=== PATIENT | female | born 1940 ===

== ENCOUNTER → 2023-04-14 11:49 | Outpatient (ROUT) | payer MEDICARE, OTHER, SELFPAY ==
[2023-04-14 12:10] LABS: INR 2.7 (0.9-1.3); Prothrombin Time 31.7 SECONDS (9.4-12.5)
== END ==
PROVIDERS: Visit Provider Family Medicine
DX: I48.0 Paroxysmal atrial fibrillation (principal)
CPT/HCPCS: 85610

== ENCOUNTER → 2023-07-01 09:07 | Outpatient (ROUT) | payer MEDICARE, OTHER, SELFPAY ==
[2023-07-01 09:22] LABS: INR 3.7 (0.9-1.3); Prothrombin Time 42.7 SECONDS (9.4-12.5)
== END ==
PROVIDERS: Visit Provider Family Medicine
DX: I48.0 Paroxysmal atrial fibrillation (principal)
CPT/HCPCS: 85610

== ENCOUNTER → 2023-07-16 12:13 | Outpatient (ROUT) | payer MEDICARE, OTHER, SELFPAY ==
[2023-07-16 12:45] LABS: INR 1.5 (0.9-1.3); Prothrombin Time 17.2 SECONDS (9.4-12.5)
== END ==
PROVIDERS: Visit Provider Family Medicine
DX: I48.0 Paroxysmal atrial fibrillation (principal)
CPT/HCPCS: 85610